=== PATIENT | female | born 1975 | race Two or more races ===

== ENCOUNTER 2017-12-12 16:01 | Emergency (ER) | payer OTHER ==
[~2017-12-12] VITALS: Ht 170.2 cm; Wt 109.8 kg
--- NOTE | 2017-12-12 16:13 | NUR ---
A/OX4, PT WALKED IN TO THE ER W/ C/O WORSENING PELVIC PAIN X 2 MONTHS.PT STS THAT SHE HAD AN IUD PLACEMENT 9MOS AGO DURING CS SECTION. SHE SAID SHE HAD AN APPOINTMENT 6WKS POST DELIVERY AND ON OCT 2017 AND SHE WAS TOLD DURING BOTH APPOINTMENT THAT IUD STRING COULDN'T BE FOUND. SHE WAS ADVISED THAT SHE WILL NEED AN ULTRASOUND BUT SHE WAS BEING SCHEDULED ON JANUARY 2018. NAD. VSS RR EVEN AND UNLABORED. SKIN IS WARM AND NON DIAPHORETIC. PENDING ER MD SOTELO
--- NOTE | 2017-12-12 17:30 | NUR ---
Patient discharged to home in stable condition. Written and verbal after care instructions given. Patient verbalizes understanding of instruction.
[2017-12-12 17:31] VITALS: BP 128/85
== END 2017-12-12 17:32 | disposition home or self-care (01) ==
LOC: ER 16:02
DX: N83.201 Unspecified ovarian cyst, right side (principal); E28.2 Polycystic ovarian syndrome; J45.909 Unspecified asthma, uncomplicated; Z97.5 Presence of (intrauterine) contraceptive device; Z90.49 Acquired absence of other specified parts of digestive tract
CPT/HCPCS: 76856-TC; 84703-TC; A4606; Z7610

== ENCOUNTER 2019-05-11 22:09 | Emergency (ER) | payer SELFPAY ==
[~2019-05-11] VITALS: Ht 172.7 cm; Wt 99.8 kg
[2019-05-11 22:32] VITALS: BP 143/99
--- NOTE | 2019-05-11 22:50 | NUR ---
PATIENT BIBFAMILY C/O LOWER R MID BACK PAIN 03/28 RADIATING TO R HIP. NO SIGNS OF DISTRESS. BREATHING EVEN AND UNLABORED. 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 STATES SHE AWOKE FROM HER NAP AND COULD BARELY GET OUT OF BED. VSS. WILL CONTINUE TO MONITOR.
[2019-05-11] MEDS ORDERED: MORPHINE SULFATE INJ 2 MG/ML DISP.SYRIN IM ONE (23:30)
[2019-05-11] MEDS ORDERED: ONDANSETRON 4 MG TAB.RAPDIS SL ONE (23:30)
[2019-05-11] MEDS ORDERED: MORPHINE SULFATE INJ 4 MG/ML DISP.SYRIN ONE (23:30)
[2019-05-11] MEDS ORDERED: ONDANSETRON 4 MG TAB.RAPDIS ONE (23:31)
[2019-05-12] MEDS ORDERED: HYDROMORPHONE INJ 0.5 MG/0.5 ML SYRINGE IM ONE (02:30)
[2019-05-12] MEDS ORDERED: HYDROMORPHONE 1 MG/1 ML DISP.SYRIN ONE (02:42)
== END 2019-05-12 03:16 | disposition home or self-care (01) ==
LOC: ER 22:15
DX: M54.5 Low back pain (principal); J45.909 Unspecified asthma, uncomplicated; Z90.49 Acquired absence of other specified parts of digestive tract; Z98.890 Other specified postprocedural states; Z60.2 Problems related to living alone
CPT/HCPCS: 96372 ×2; 99283; J1170; J2270; Q0162

== ENCOUNTER 2020-01-24 19:47 | Emergency (ER) | payer BC ==
[~2020-01-24] VITALS: Ht 172.7 cm; Wt 113.4 kg
--- NOTE | 2020-01-24 19:57 | NUR ---
PT BIB EMS C/O OF ABD CRAMPING SINCE 3 YEARS AGO, BLOODY DIARRHEA X1 MONTH TO ER BED 4, VSS STABLE AWAITING FOR MD SOTELO
[2020-01-24 20:20] LABS: BASOPHILS % (AUTO) 0.6 % (0.0-2.0); EOSINOPHILS % (AUTO) 1.9 % (0.0-6.0); HEMATOCRIT 39 % (33-45); HEMOGLOBIN 13.3 g/dL (11.5-14.8); LYMPHOCYTES # (AUTO) 2.1 /CMM (0.8-4.8); LYMPHOCYTES % (AUTO) 25.2 % (20.0-44.0); MEAN CORPUSCULAR HGB CONC 34 g/dl (31.0-36.0); MEAN CORPUSCULAR VOLUME 92 fL (82-100); MONOCYTES # (AUTO) 0.4 /CMM (0.1-1.30); MONOCYTES % (AUTO) 4.8 % (2.0-12.0); NEUTROPHILS # (AUTO) 5.6 /CMM (1.8-8.9); NEUTROPHILS % (AUTO) 67.5 % (43.0-81.0); PLATELET COUNT (AUTO) 253 /CMM (150-450); RED BLOOD CELL COUNT(AUTO) 4.23 MIL/uL (4.0-5.2); WHITE BLOOD COUNT (AUTO) 8.2 K/uL (4.3-11.0)
--- NOTE | 2020-01-24 20:20 | NUR ---
LINE STARTED, BLOOD SENT TO LAB
[2020-01-24] MEDS: IV NS 0.9% 1,000 ML BAG IV ONE (20:22)
[2020-01-24 20:36] LABS: CALCIUM, SERUM 9.6 mg/dL (8.5-10.1); CREATININE 0.8 mg/dL (0.6-1.3); POTASSIUM 4.3 mmol/L (3.5-5.1)
[2020-01-24 20:42] LABS: ALBUMIN 3.7 g/dL (3.4-5.0); BILIRUBIN,DIRECT 0.1 mg/dL (0.0-0.2); BILIRUBIN,TOTAL 0.4 mg/dL (0.2-1.0); TOTAL PROTEIN, SERUM 7.6 g/dL (6.4-8.2)
[2020-01-24] MEDS ORDERED: DICYCLOMINE HCL 10 MG CAPSULE PO ONE (20:50)
--- NOTE | 2020-01-24 20:52 | NUR ---
URINE SENT TO LAB
[2020-01-24] MEDS: DICYCLOMINE HCL 10 MG CAPSULE PO ONE (20:54)
[2020-01-24 20:56] LABS: APPEARANCE,URINE Clear (CLEAR); BILIRUBIN,URINE Negative (NEGATIVE); BLOOD, URINE Moderate Ery/uL (NEGATIVE); COLOR,URINE Yellow (YELLOW); KETONES,URINE Negative (NEGATIVE); LEUKOCYTE ESTERASE ,URINE Negative (NEGATIVE); NITRITE, URINE Negative (NEGATIVE); PH,URINE 5.5 (5.0-8.0); PROTEIN,URINE Negative (NEGATIVE); UGLUCOSE Negative (NEGATIVE); UROBILINOGEN,URINE 0.2 EU/dL (0.2)
--- NOTE | 2020-01-24 21:00 | NUR ---
PT TAKEN TO CT
--- NOTE | 2020-01-24 21:10 | NUR ---
PT BACK FROM CT
[2020-01-24 21:44] LABS: BACTERIA,URINE Rare /HPF (None Seen); SQUAMOUS EPITHELIAL CELL,UR Few /HPF (None Seen); WBC,URINE NONE SEEN /HPF (0-3)
[2020-01-24 21:52] VITALS: BP 118/83
--- NOTE | 2020-01-24 21:52 | NUR ---
IV removed. Catheter intact and site benign. Pressure and 4x4 applied to site. No bleeding noted.Patient discharged to home in stable condition. Written and verbal after care instructions given. Patient verbalizes understanding of instruction.
== END 2020-01-24 21:53 | disposition home or self-care (01) ==
LOC: ER 19:49
DX: K58.9 Irritable bowel syndrome, unspecified (principal); J45.909 Unspecified asthma, uncomplicated; Z90.49 Acquired absence of other specified parts of digestive tract; Z98.890 Other specified postprocedural states; Z60.2 Problems related to living alone
CPT/HCPCS: 36415; 74176; 80048; 80076; 81001; 83690; 84703; 85025; 99284; J7030; 81000-TC

== ENCOUNTER 2021-01-03 13:23 | Emergency (ER) | payer SELFPAY ==
[~2021-01-03] VITALS: Ht 172.7 cm; Wt 117.0 kg
--- NOTE | 2021-01-03 13:51 | NUR ---
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 PT AAOX4, VSS. RR EVEN & UNLABORED. DENIES CP, SOB, DIZZINESS, N/V/D AT THIS TIME. PT SEEN & EVAL'D BY DR. GUERRA. PLACED ON MANUFACTURING ENGINEERING DIRECTOR, SR. WILL CONT TO MONITOR.
[2021-01-03 13:55] LABS: BASOPHILS # (AUTO) 0.1 /CMM (0.0-0.2); BASOPHILS % (AUTO) 0.8 % (0.0-2.0); EOSINOPHILS % (AUTO) 1.6 % (0.0-6.0); HEMATOCRIT 39 % (33-45); HEMOGLOBIN 13.1 g/dL (11.5-14.8); LYMPHOCYTES # (AUTO) 2.2 /CMM (0.8-4.8); MEAN CORPUSCULAR HGB CONC 34 g/dl (31.0-36.0); MEAN CORPUSCULAR VOLUME 94 fL (82-100); MONOCYTES # (AUTO) 0.4 /CMM (0.1-1.30); MONOCYTES % (AUTO) 5.1 % (2.0-12.0); NEUTROPHILS # (AUTO) 5.5 /CMM (1.8-8.9); NEUTROPHILS % (AUTO) 66.5 % (43.0-81.0); PLATELET COUNT (AUTO) 246 /CMM (150-450); RED BLOOD CELL COUNT(AUTO) 4.16 MIL/uL (4.0-5.2); WHITE BLOOD COUNT (AUTO) 8.3 K/uL (4.3-11.0)
[2021-01-03 14:00] LABS: CARBON DIOXIDE 27 mmol/L (21-32); CHLORIDE 106 mmol/L (98-107); GLUCOSE 106 mg/dL (74-106); POTASSIUM 3.8 mmol/L (3.5-5.1); SODIUM SERUM 141 mmol/L (136-145); UREA NITROGEN, BLOOD 15 mg/dL (7-18)
[2021-01-03] MEDS ORDERED: ONDANSETRON HCL/PF 4 MG/2 ML VIAL ONE (16:13)
[2021-01-03] MEDS ORDERED: MORPHINE SULFATE INJ 4 MG/ML DISP.SYRIN ONE ×2 (16:14→18:08)
--- NOTE | 2021-01-03 16:19 | NUR ---
MEDICATED PER ERMD ORDER, PT JUANJO WELL.
[2021-01-03] MEDS ORDERED: MORPHINE SULFATE INJ 2 MG/ML DISP.SYRIN IV ONE ×2 (16:30→18:30)
[2021-01-03] MEDS ORDERED: KETOROLAC TROMETHAMINE INJ 30 MG/ML VIAL IV ONE (16:30)
[2021-01-03] MEDS ORDERED: ONDANSETRON HCL/PF 4 MG/2 ML VIAL IV ONE (16:30)
--- NOTE | 2021-01-03 16:47 | NUR ---
PENDING TEST FOR CT PULMONARY ANGIOGRAM
[2021-01-03 17:21] LABS: B-TYPE NATRIURETIC PEPTIDE 45 PG/ML (0-125)
[2021-01-03] MEDS ORDERED: IOHEXOL-350 100 ML VIAL IV ONE (17:26)
--- NOTE | 2021-01-03 17:55 | NUR ---
LAB CALLED PT COVID RESULT NEGATIVE (-)
--- NOTE | 2021-01-03 18:20 | NUR ---
MEDICATED FOR PAIN PER ERMD ORDER, PT JUANJO WELL. WILL CONT TO MONITOR.
[2021-01-03] MEDS ORDERED: TRAM50TA2 PO (18:33)
[2021-01-03] MEDS ORDERED: NAPR-1164 PO (18:33)
[2021-01-03 19:06] VITALS: BP 148/85
--- NOTE | 2021-01-03 19:06 | NUR ---
Patient discharged to home in stable condition. Written and verbal after care instructions given. Patient verbalizes understanding of instruction. IV removed. Catheter intact and site benign. Pressure and 4x4 applied to site. No bleeding noted.
== END 2021-01-03 19:07 | disposition home or self-care (01) ==
LOC: ER 13:29
DX: R07.89 Other chest pain (principal); Z82.49 Family history of ischemic heart disease and other diseases of the circulatory system; Z20.822 Contact with and (suspected) exposure to COVID-19; Z86.16 Personal history of COVID-19; Z90.49 Acquired absence of other specified parts of digestive tract; R94.31 Abnormal electrocardiogram [ECG] [EKG]; J45.909 Unspecified asthma, uncomplicated; E28.2 Polycystic ovarian syndrome
CPT/HCPCS: 36415; 71045; 71275; 80048; 83880; 84484 ×2; 84702; 85025; 87426; 93005 ×3; 96374; 96375; 96376; 99285; C9803 ×2; J2270 ×2; J2405; Q9967; U0003

== ENCOUNTER 2023-07-09 13:31 | Emergency (ER) | payer OTHER ==
[~2023-07-09] VITALS: Ht 172.7 cm; Wt 117.0 kg
[~2023-07-09 13:31] MED LIST: NAPR-1164 PO; TRAM50TA2 PO
[2023-07-09 13:47] VITALS: BP 147/92; TEMP 98.7; O2SAT 100
== END 2023-07-09 15:17 | disposition home or self-care (01) ==
LOC: ER 13:44
DX: R59.9 Enlarged lymph nodes, unspecified (principal); R51.9 Headache, unspecified; J45.909 Unspecified asthma, uncomplicated; Z90.49 Acquired absence of other specified parts of digestive tract
CPT/HCPCS: 70450-TC